=== PATIENT | female | born 1995 | race Caucasian/White ===

== ENCOUNTER 2020-04-12 15:21 | Emergency (ER) | payer OTHER ==
[~2020-04-12] VITALS: Ht 162.6 cm; Wt 109.3 kg
[2020-04-12] MEDS ORDERED: PROAIR HFA8.5 GM INH (15:32)
[2020-04-12 15:43] LABS: URINE BILIRUBIN 2+ (Negative); URINE BLOOD TRACE (Negative); URINE CLARITY CLEAR; URINE COLOR YELLOW; URINE GLUCOSE-RANDOM* NEGATIVE (Negative); URINE KETONES 3+ (Negative); URINE LEUKOCYTES-REFLEX NEGATIVE (Negative); URINE NITRITE-REFLEX NEGATIVE (Negative); URINE PROTEIN (DIPSTICK) NEGATIVE (Negative); URINE SPECIFIC GRAVITY >= 1.030 (1.005-1.035); URINE UROBILINOGEN 0.2 E.U./dl (0.2-1.0)
[2020-04-12 15:49] LABS: ICTOTEST (BILI CONFIRMATORY) Negative (Negative)
[2020-04-12] MEDS ORDERED: JASMIEL 3 MG-01 EACH PO (15:56)
[2020-04-12] MEDS ORDERED: CLARITIN10 MG PO (15:56)
[2020-04-12 17:10] LABS: ABSOLUTE NEUTROPHILS 3.9 thou/uL (1.4-8.2); BASOPHILS 1.2 % (0.0-2.0); EOSINOPHILS 0.8 % (0.0-3.0); HEMATOCRIT 43.5 % (37.0-47.0); HEMOGLOBIN 14.4 gm/dL (12.0-15.0); LYMPHOCYTES 26.8 % (24.0-44.0); MCH 26.3 pg (26.0-34.0); MCHC 33.2 g/dL (28.0-37.0); MCV 79.3 fL (80.0-100.0); MONOCYTES 10.5 % (1.0-8.0); PLATELET COUNT 457 thou/uL (150-400); POLYS 60.7 % (36.0-66.0); RBC 5.49 mil/uL (4.20-5.00); RDW 15.4 % (10.5-14.5); WBC 6.5 thou/uL (4.0-11.0)
[2020-04-12 17:18] LABS: CALCIUM 9.3 mg/dL (8.5-10.1); CREATININE 0.9 mg/dL (0.6-1.0); POTASSIUM 3.6 mmol/L (3.5-5.1)
[2020-04-12 17:24] LABS: TOTAL BILIRUBIN 0.8 mg/dL (0.2-1.0)
[2020-04-12] MEDS ORDERED: ONDANSETRON HCL4 M2 PO (18:42)
[2020-04-12] MEDS ORDERED: CARAFATE 1 GM TA1 G1 PO (18:42)
[2020-04-12] MEDS ORDERED: OMEPRAZOLE40 MG PO (18:42)
[2020-04-12 19:46] VITALS: BP 153/81
== END 2020-04-12 19:50 | disposition home or self-care (01) ==
LOC: ER 15:21
PROVIDERS: Physician Assistant
DX: K29.70 Gastritis, unspecified, without bleeding (principal); R11.2 Nausea with vomiting, unspecified; R10.13 Epigastric pain; F12.90 Cannabis use, unspecified, uncomplicated; Z88.1 Allergy status to other antibiotic agents; Z88.8 Allergy status to other drugs, medicaments and biological substances; Z79.899 Other long term (current) drug therapy

== ENCOUNTER 2021-06-09 12:00 | Emergency (ER) | payer OTHER ==
[~2021-06-09] VITALS: Ht 165.1 cm; Wt 97.5 kg
[~2021-06-09 12:00] MED LIST: CARAFATE 1 GM TA1 G1 PO; CLARITIN10 MG PO; JASMIEL 3 MG-01 EACH PO; OMEPRAZOLE40 MG PO; ONDANSETRON HCL4 M2 PO; PROAIR HFA8.5 GM INH
[2021-06-09 14:42] VITALS: BP 122/76
== END 2021-06-09 14:43 | disposition home or self-care (01) ==
LOC: ER 12:00
DX: S93.402A Sprain of unspecified ligament of left ankle, initial encounter (principal); S93.602A Unspecified sprain of left foot, initial encounter; Z79.899 Other long term (current) drug therapy; Z88.1 Allergy status to other antibiotic agents; W01.0XXA Fall on same level from slipping, tripping and stumbling without subsequent striking against object, initial encounter; Y93.89 Activity, other specified; Y92.89 Other specified places as the place of occurrence of the external cause; Y99.8 Other external cause status